=== PATIENT | male | born 1995 | race Two or more races ===

== ENCOUNTER 2020-03-29 10:07 | Emergency (ER) | payer OTHER ==
[2020-03-29 10:13] VITALS: BP 129/88; PULSE 71; TEMP 98.4; BMI 21.4
[2020-03-29] MEDS ORDERED: IBUPROFEN 600 MG TABLET (FP) PO ONE (10:13)
--- NOTE | 2020-03-29 10:17 | PDOC ---
Rapid Medical Evaluation Chief Complaint: Injury Time Seen by Provider: 03/29/20 10:11 Medical Evaluation: Allergies Allergy/AdvReac Type Severity Reaction Status Date / Time No Known Allergies Allergy Verified 03/29/20 10:11 03/29/20 10:13 Patient 24 y/o male reports pain in left foot /ankle x 4 days ago after running.Denies pain at this time.Reports bruising and swelling. Exam: Ambulatory with good rom of left ankle , amado wrap in place. Order: ibuprofen, xray. Patient to go to fast track for further eval. Discharge Disposition - Diagnosis Left ankle pain Qualifiers: Chronicity: acute Qualified Code(s): M25.572 - Pain in left ankle and joints of left foot - Referrals - Patient Instructions - Post Discharge Activity
--- NOTE | 2020-03-29 11:04 | PDOC ---
History of Present Illness - General Chief Complaint: Injury Stated Complaint: LT ANKLE INJURY Time Seen by Provider: 03/29/20 10:11 History Source: Patient Exam Limitations: No Limitations - History of Present Illness Initial Comments: 03/29/20 10:59 Patient is a 24-year-old male with no past medical history here with complaints of left ankle pain x 4 days. Patient states that he was running and twisted his ankle and since then has had some swelling to the lateral aspect of the ankle. He is concerned that he could have sustained a fracture. He denies having any pain currently and has good range of motion. PSOCHX: neg cig, durg, etoh ALL: NKDA GENERAL/CONSTITUTIONAL: [No fever or chills. No weakness. No weight change.] HEAD, EYES, EARS, NOSE AND THROAT: [No change in vision. No ear pain or discharge. No sore throat.] MUSCULOSKELETAL: [No joint or muscle swelling or pain. No neck or back pain.] SKIN: [No rash or easy bruising.] NEUROLOGIC: [No headache, vertigo, loss of consciousness, or loss of sensation.] ALLERGIC/IMMUNOLOGIC: [No hives or skin allergy. No latex allergy.] GENERAL: [The patient is awake, alert, and fully oriented, in no acute distress.] HEAD: [Normal with no signs of trauma.] EYES: [Pupils equal, round and reactive to light, extraocular movements intact, sclera anicteric, conjunctiva clear.] EXTREMITIES: [Normal range of motion, mild swelling and discoloration over the lateral mild, nontender to palpation, pulses intact, no clubbing or cyanosis. No cords, erythema, or tenderness.] NEUROLOGICAL: [Cranial nerves II through XII grossly intact. Normal speech, normal gait.] PSYCH: [Normal mood, normal affect.] SKIN: [Warm, Dry, normal turgor, bruising over the lateral malleolus] Past History - Medical History Allergies/Adverse Reactions: Allergies Allergy/AdvReac Type Severity Reaction Status Date / Time No Known Allergies Allergy Verified 03/29/20 10:11 Home Medications: Ambulatory Orders NK [No Known Home Medication] 03/29/20 COPD: No - Psycho-Social/Smoking History Smoking History: Never smoked - Substance Abuse Hx (Audit-C & DAST Scrn) How often the patient has a drink containing alcohol: Never Score: In Men: 4 or > Positive; In Women: 3 or > Positive: 0 Screen Result (Pos requires Nsg. Audit-10AR): Negative *Physical Exam - Vital Signs Last Vital Signs Temp Pulse Resp BP Pulse Ox 98.4 F 71 16 129/88 99 03/29/20 10:11 03/29/20 10:11 03/29/20 10:11 03/29/20 10:11 03/29/20 10:11 Medical Decision Making - Medical Decision Making 03/29/20 10:59 Patient is a 24-year-old male with no past medical history here with complaints of left ankle pain x 4 days. Patient states that he was running and twisted his ankle and since then has had some swelling to the lateral aspect of the ankle. He is concerned that he could have sustained a fracture. He denies having any pain currently and has good range of motion. Symptoms consistent with sprain however will rule out fracture. RME x-ray ordered and reviewed no acute fracture. Continue Loco bandage I discussed the physical exam findings, ancillary test results and final diagnoses with the patient. I answered all of the patient's questions. The patient was satisfied with the care received and felt comfortable with the discharge plan and treatment plan. The Patient agrees to follow up with the primary care physician within 24-72 hours. Discharge - Discharge Information Problems reviewed: Yes Clinical Impression/Diagnosis: Left ankle pain Qualifiers: Chronicity: acute Qualified Code(s): M25.572 - Pain in left ankle and joints of left foot Ankle sprain Qualifiers: Encounter type: initial encounter Involved ligament of ankle: other ligament Laterality: left Qualified Code(s): S93.492A - Sprain of other ligament of left ankle, initial encounter Condition: Stable Disposition: HOME - Follow up/Referral Referrals: Oliver Arguello MD [Staff Physician] - - Patient Discharge Instructions Patient Printed Discharge Instructions: DI for Ankle Sprain Additional Instructions: Your Discharge Instructions: You must call primary care physician within 24 hours to arrange follow-up. Return to the Emergency Department with any new, persistent or worsening symptoms, for fever, chills, SOB, dizziness or any other concerning changes that may occur. Continue LOCO bandage to the ankle, and rest. Allow 2-3 weeks for healing before running again. You may follow-up with the orthopedist if not improved. - Post Discharge Activity
== END 2020-03-29 11:36 | disposition home or self-care (01) ==
LOC: JERFT 10:07
DX: M25.572 Pain in left ankle and joints of left foot (principal); S93.492A Sprain of other ligament of left ankle, initial encounter
CPT/HCPCS: 73610-TC-LT-FY; 73630-TC-LT; 99283-25

== ENCOUNTER 2020-08-30 15:31 | Emergency (ER) | payer OTHER ==
[2020-08-30 15:38] VITALS: BP 129/69; PULSE 85; TEMP 98.1; BMI 22.8
[2020-08-30] MEDS ORDERED: IBUPROFEN 400 MG TABLET (FP) PO ONE ×2 (16:06)
== END 2020-08-30 16:12 | disposition home or self-care (01) ==
LOC: JERFT 15:31
DX: S83.92XA Sprain of unspecified site of left knee, initial encounter (principal)
CPT/HCPCS: 99284-25